=== PATIENT | female | born 2000 | race Two or more races ===

== ENCOUNTER 2020-05-24 02:34 | Emergency (ER) | payer MEDICAID ==
[~2020-05-24] VITALS: Ht 144.8 cm; Wt 46.0 kg
[~2020-05-24 02:34] MED LIST: PREN-3 PO
--- NOTE | 2020-05-24 02:38 | NUR ---
brought in by [facility] from home. c/o shortness of breath, rash all over body and lip swelling after eating pizza 2 hrs ago. patient was given 0.3 mg epi, 25 mg benadryl, 800 ml NS and 2 albuterol treatment.
[2020-05-24] MEDS ORDERED: methylPREDNISolone SOD SUCC 125 MG/2 ML ONE (02:51)
[2020-05-24] MEDS ORDERED: FAMOTIDINE 20 MG/2 ML ONE (02:52)
[2020-05-24] MEDS ORDERED: FAMOTIDINE 20 MG/2 ML IVPush ONE (03:00)
[2020-05-24] MEDS ORDERED: SODIUM CHLORIDE FLUSH 10ML SYR IVF ONE (03:00)
[2020-05-24] MEDS ORDERED: SODIUM CHLORIDE 0.9% 1,000ML IVBOLUS ONE (03:00)
[2020-05-24] MEDS ORDERED: methylPREDNISolone SOD SUCC 125 MG/2 ML IVPush ONE (03:00)
--- NOTE | 2020-05-24 03:00 | NUR ---
ivf hung. medicated. patient states feeling much better.
[2020-05-24 05:03] VITALS: BP 103/58
== END 2020-05-24 05:14 | disposition home or self-care (01) ==
LOC: ED 03:04
DX: T78.09XA Anaphylactic reaction due to other food products, initial encounter (principal); T78.3XXA Angioneurotic edema, initial encounter; J98.01 Acute bronchospasm; R22.0 Localized swelling, mass and lump, head; R06.1 Stridor; Y92.89 Other specified places as the place of occurrence of the external cause
CPT/HCPCS: 96361; 96374; 96375; 99291; J2930; J3490; J7030